=== PATIENT | female | born 1995 | race African-American/Black ===

== ENCOUNTER 2024-06-07 01:37 | Emergency (ER) | payer MEDICAID ==
[~2024-06-07] VITALS: Ht 170.2 cm; Wt 82.0 kg
[2024-06-07 01:40] VITALS: O2SAT 99
[2024-06-07 04:02] LABS: CHLORIDE 108 mEq/L (98-107); POTASSIUM 4.1 mEq/L (3.5-5.1); SODIUM 140 mEq/L (136-145)
[2024-06-07 04:03] LABS: CALCIUM 9.4 mg/dL (8.7-10.4); CARBON DIOXIDE 27 mEq/L (21-32)
[2024-06-07 04:08] LABS: CREATININE 0.9 mg/dL (0.6-1.0); GLUCOSE 98 mg/dL (70-105); UREA NITROGEN BLOOD 10 mg/dL (9-23)
[2024-06-07 04:19] LABS: BASOPHILS % 0.4 % (0.0-2.0); EOSINOPHILS % 0.7 % (0.0-5.0); HEMOGLOBIN. 12.5 g/dL (12.0-16.0); LYMPHOCYTES % 25.9 % (20.0-50.0); MEAN CORPUSCULAR HEMOGLOBIN 30.9 pg (28.0-32.0); MEAN CORPUSCULAR HGB CONC 33.7 g/dL (31.0-37.0); MEAN CORPUSCULAR VOLUME 91.5 fL (81.0-99.0); MEAN PLATELET VOLUME 9.2 fl (7.4-10.4); PLATELET 186 x1000/uL (130-400); RED BLOOD CELL COUNT 4.05 mill/uL (4.2-5.4); RED CELL DISTRIBUTION WIDTH 14.1 % (11.6-14.6); WHITE BLOOD COUNT 6.3 x1000/uL (4.5-11.0)
[2024-06-07 04:24] LABS: HCG SCREEN NEGATIVE
[2024-06-07 04:28] VITALS: BP 104/66; PULSE 74; RESP 16; TEMP 37.2; O2SAT 100
[2024-06-07] MEDS: FLUCONAZOLE 100MG TABLET PO NR (04:59)
[2024-06-07] MEDS: NAPROXEN 500MG TABLET PO NR (04:59)
[2024-06-07] MEDS ORDERED: NAPR-681 MT (05:05)
== END 2024-06-07 05:35 | disposition home or self-care (01) ==
LOC: ER 01:37
DX: B37.31 Acute candidiasis of vulva and vagina (principal); Z00.00 Encounter for general adult medical examination without abnormal findings; Z98.890 Other specified postprocedural states
CPT/HCPCS: 36415; 80048; 84703; 85025; 87210; 87591; 99284; A4606